=== PATIENT | male | born 1960 | race Caucasian/White ===

== ENCOUNTER 2016-08-07 08:29 | Inpatient (IN) | payer OTHER ==
[2016-08-07 09:39] VITALS: BMI 24.4
--- NOTE | 2016-08-07 11:38 | HP ---
CIWA Score - CIWA Score Nausea/Vomitin-Mild Nausea/No Vomiting Muscle Tremors: 4-Moderate,w/Arms Extend Anxiety: 4-Mod. Anxious/Guarded Agitation: 4-Moderately Restless Paroxysmal Sweats: 3 Orientation: 0-Oriented Tacttile Disturbances: 0-None Auditory Disturbances: 0-None Visual Disturbances: 0-None Headache: 1-Very Mild CIWA-Ar Total Score: 17 Admission ROS BHS - HPI Chief Complaint: I am here to detox. Allergies/Adverse Reactions: Allergies Allergy/AdvReac Type Severity Reaction Status Date / Time Penicillins Allergy Severe Rash Verified 08/07/16 10:14 diphenhydramine HCl Allergy Intermediate SHAKES Verified 08/07/16 10:14 [From Benadryl] History of Present Illness: pt is a 56yr old male with a history of alcohol dependence seeking detox for treatment. pt was at [facility] for alcohol withdrawal in the ED received one dose of libium for his s/s and is here now for detox treatment. Exam Limitations: No Limitations - Ebola screening Have you traveled outside of the country in the last 21 days: No Have you had contact with anyone from an Ebola affected area: No Have you been sick,other than usual withdrawal symptoms: No - Review of Systems Constitutional: Chills, Diaphoresis, Night Sweats, Changes in sleep EENT: reports: No Symptoms Reported Respiratory: reports: No Symptoms reported Cardiac: reports: No Symptoms Reported GI: reports: Nausea, Poor Appetite, Poor Fluid Intake, Indigestion : reports: No Symptoms Reported Musculoskeletal: reports: No Symptoms Reported Integumentary: reports: No Symptoms Reported, Other (bump with scrap to back of head. due to fall two weeks ago.) Neuro: reports: Headache, Tingling, Tremors Endocrine: reports: Excessive Sweating, Flushing, Intolerance to Cold, Intolerance to Heat Hematology: reports: No Symptoms Reported Psychiatric: reports: Judgement Intact, Mood/Affect Appropiate, Orientated x3, Agitated, Anxious Other Systems: Reviewed and Negative Patient History - Patient Medical History Hx Anemia: No Hx Asthma: No Hx Chronic Obstructive Pulmonary Disease (COPD): No Hx Cancer: No Hx Cardiac Disorders: No Hx Congestive Heart Failure: No Hx Hypertension: No Hx Hypercholesterolemia: No Hx Pacemaker: No HX Cerebrovascular Accident: No Hx Seizures: Yes (etoh related last in 2014) Hx Dementia: No Hx Diabetes: No Hx Gastrointestinal Disorders: Yes (Hiatal hernia with GERD.) Hx Liver Disease: No Hx Genitourinary Disorders: No Hx Sexually Transmitted Disorders: No Hx Renal Disease (ESRD): No Hx Thyroid Disease: No Hx Human Immunodeficiency Virus (HIV): No Hx Hepatitis C: No Hx Depression: Yes Hx Suicide Attempt: Yes (Tried to cut rist in 2002/ denies any S/H ideation today.) Hx Bipolar Disorder: No Hx Schizophrenia: No - Patient Surgical History Past Surgical History: No Hx Neurologic Surgery: No Hx Cataract Extraction: No Hx Cardiac Surgery: No Hx Lung Surgery: No Hx Breast Surgery: No Hx Breast Biopsy: No Hx Abdominal Surgery: No Hx Appendectomy: No Hx Cholecystectomy: No Hx Genitourinary Surgery: No Hx Section: No Hx Orthopedic Surgery: No Hx Hysterectomy: No - PPD History Previous Implant?: Yes Documented Results: Positive w/proof Results: CXR neg 07/06 PPD to be Administered?: No - Reproductive History Patient is a Female of Child Bearing Age (11 -55 yrs old): No - Smoking Cessation Smoking history: Current every day smoker Have you smoked in the past 12 months: Yes Aproximately how many cigarettes per day: 8 Hx Chewing Tobacco Use: No Initiated information on smoking cessation: Yes 'Breaking Loose' booklet given: 08/07/16 - Substance & Tx. History Hx Alcohol Use: Yes Hx Substance Use: No Substance Use Type: Alcohol Hx Substance Use Treatment: Yes - Substances Abused Alcohol Route: Oral Frequency: Daily Amount used: fifth of vodka Age of first use: 27 Date of Last Use: 08/06/16 Family Disease History - Family Disease History Family Disease History: Diabetes: Father (ETOH; ), Heart Disease: Father, Other: Father, Mother (ESRD; ) Admission Physical Exam BHS - Vital Signs Vital Signs: Vital Signs - 24 hr 08/07/16 09:38 Temperature 97.7 F Pulse Rate 87 Respiratory 16 Rate Blood Pressure 162/91 - Physical General Appearance: Yes: Disheveled, Moderate Distress, Thin, Tremorous, Irritable, Sweating, Anxious HEENTM: Yes: Normal Voice Respiratory: Yes: Lungs Clear, Normal Breath Sounds, No Respiratory Distress Neck: Yes: No masses,lesions,Nodules Breast: Yes: Within Normal Limits, Axillae without masses, No Discharge, No masses Cardiology: Yes: Regular Rhythm, Regular Rate, S1, S2 Abdominal: Yes: Normal Bowel Sounds, Non Tender, Soft Genitourinary: Yes: Within Normal Limits Back: Yes: Normal Inspection Musculoskeletal: Yes: full range of Motion Extremities: Yes: Normal Inspection, Non-Tender, Tremors Neurological: Yes: Fully Oriented, Alert, Normal Response Integumentary: Yes: Normal Color Lymphatic: Yes: Within Normal Limits - Addiitonal Findings: bump with scrap to back of head d/t fall two weeks ago. - Diagnostic (1) Alcohol dependence with uncomplicated withdrawal Current Visit: Yes Status: Chronic (2) Hiatal hernia with GERD Current Visit: No Status: Chronic (3) PPD positive, treated Current Visit: No Status: Chronic (4) Head lump Current Visit: Yes Status: Acute Comment: back of head with scrap noted. Cleared for Admission [facility] - Detox or Rehab [facility] Level of Care: Medically Managed Detox Regimen/Protocol: Librium [facility] Breath Alcohol Content Breath Alcohol Content: 0 Urine Drug Screen - Results Drug Screen Negative: No Urine Drug Screen Results: BZO-Benzodiazepines
[2016-08-07] MEDS ORDERED: ACETAMINOPHEN 325 MG TABLET (FP) PO PRN (11:46)
[2016-08-07] MEDS ORDERED: LOPERAMIDE HCL 2 MG CAPSULE PO PRN (11:46)
[2016-08-07] MEDS ORDERED: IBUPROFEN 400 MG TABLET (FP) PO PRN (11:46)
[2016-08-07] MEDS ORDERED: MAGNESIUM CITRATE 300 ML BOTTLE PO PRN (11:46)
[2016-08-07] MEDS ORDERED: chlordiazePOXIDE HCL 25 MG CAPSULE PO PRN (11:46)
[2016-08-07] MEDS ORDERED: guaiFENesin/D-METHORPHAN HB 10 ML UNIT-DOSE CUPS PO PRN (11:46)
[2016-08-07] MEDS ORDERED: MENTHOL/PHENOL 1 EACH UD MM PRN (11:46)
[2016-08-07] MEDS ORDERED: MAGNESIUM HYDROX 2400MG/30ML ORAL SUSPENSION 30 ML CUP PO PRN (11:46)
[2016-08-07] MEDS ORDERED: chlordiazePOXIDE HCL 25 MG CAPSULE PO ONE (12:05)
[2016-08-07] MEDS: chlordiazePOXIDE HCL 25 MG CAPSULE PO SCH ×3 (12:15→22:32)
--- NOTE | 2016-08-07 15:05 | CONSULT ---
[facility] Psychiatric Consult - Data Date of interview: 08/07/16 Admission source: [facility] Identifying data: This is 56 years old male with psychiatric hospitalization history, history of depression ontoxcuated with: Alcohol, Benzodiazepins and Nicotine Substance Abuse History: - Smoking Cessation. Smoking history: Current every day smoker. Have you smoked in the past 12 months: Yes. Aproximately how many cigarettes per day: 8. Hx Chewing Tobacco Use: No. Initiated information on smoking cessation: Yes. 'Breaking Loose' booklet given: 08/07/16. - Substance & Tx. History. Hx Alcohol Use: Yes. Hx Substance Use: No. Substance Use Type : Alcohol. Hx Substance Use Treatment: Yes Medical History: GERD, PPD+history, Head lump Psychiatric History: Patient reports history of depression with most recent admission at [facility] due to depressed mood, denies suicidal history, reports taking prior to admission: Lexapro 10mg po qd Physical/Sexual Abuse/Trauma History: Denies Additional Comment: Lexapro 10mg po qd Mental Status Exam - Mental Status Exam Alert and Oriented to: Person Cognitive Function: Fair Patient Appearance: Unkempt Mood: Sad Affect: Flat Patient Behavior: Sedated Speech Pattern: Appropriate Voice Loudness: Mildly Soft/Quiet Thought Process: Goal Oriented Thought Disorder: Being Controlled Hallucinations: Denies Suicidal Ideation: Denies Homicidal Ideation: Denies Insight/Judgement: Fair Sleep: Difficulty falling asleep Appetite: Fair Muscle strength/Tone: Mild Hypotonicity Gait/Station: Shuffling Additional Comments: Lexapro 10mg po qd Psychiatric Findings - Problem List ([place] 1, 2,3) (1) Alcohol dependence with uncomplicated withdrawal Current Visit: Yes Status: Chronic (2) Nicotine dependence Current Visit: Yes Status: Acute (3) Benzodiazepine abuse Current Visit: Yes Status: Acute (4) Drug-induced mood disorder Current Visit: Yes Status: Acute - Initial Treatment Plan Initial Treatment Plan: Lexapro 10mg po qd
[2016-08-07] MEDS ORDERED: QUEtiapine FUMARATE 100 MG TABLET (FP) PO STA (15:14)
--- NOTE | 2016-08-07 16:11 | EKG ---
Test Reason : Blood Pressure : / mmHG Vent. Rate : 083 BPM Atrial Rate : 083 BPM P-R Int : 132 ms QRS Dur : 086 ms QT Int : 398 ms P-R-T Axes : 076 079 073 degrees QTc Int : 467 ms NORMAL SINUS RHYTHM MINIMAL VOLTAGE CRITERIA FOR LVH, MAY BE NORMAL VARIANT BORDERLINE ECG WHEN COMPARED WITH ECG OF 13-JUL-2016 16:15, NO SIGNIFICANT CHANGE WAS FOUND Confirmed by MILENA LAWS, NAVI ([id number]) on 08/07/2016 4:11:09 PM Referred By: Vikash Johnson Confirmed By:NAVI ABBOTT MD
[2016-08-07 20:51] LABS: URINE APPEARANCE CLEAR; URINE BILIRUBIN NEGATIVE (NEGATIVE); URINE BLOOD NEGATIVE (NEGATIVE); URINE COLOR YELLOW; URINE GLUCOSE (UA) NEGATIVE (NEGATIVE); URINE KETONE NEGATIVE (NEGATIVE); URINE LEUK ESTERASE NEGATIVE (NEGATIVE); URINE NITRITE NEGATIVE (NEGATIVE); URINE PROTEIN NEGATIVE (NEGATIVE); URINE UROBILINOGEN NEGATIVE E.U./dl (0.2-1.0)
[2016-08-07] MEDS ORDERED: QUEtiapine FUMARATE 100 MG TABLET (FP) PO SCH (22:00)
[2016-08-07] MEDS: THIAMINE HCL 100 MG TABLET (FP) PO SCH (22:31)
[2016-08-07] MEDS: BACITRACIN 0.9 GM PACKET TP SCH (22:31)
[2016-08-08] MEDS: chlordiazePOXIDE HCL 25 MG CAPSULE PO SCH ×4 (05:43→22:28)
[2016-08-08] MEDS ORDERED: cloNIDine HCL 0.1 MG TABLET PO ONE (07:31)
[2016-08-08] MEDS: ESCITALOPRAM OXALATE 10 MG TABLET (FP) PO SCH (10:25)
[2016-08-08] MEDS: BACITRACIN 0.9 GM PACKET TP SCH ×2 (10:25→22:28)
[2016-08-08] MEDS: PRENATAL VITAMINS W/ FOLIC ACID TABLET (FP) PO SCH (10:25)
[2016-08-08 10:36] LABS: MCH 29.1 pg (25.7-33.7); MCHC 32.8 g/dl (32.0-35.9); MEAN CELL VOLUME 88.8 fl (80-96); MEAN PLT VOLUME 7.9 fl (7.5-11.1); PLATELET COUNT 412 K/MM3 (134-434); RDW 19.5 % (11.9-15.9); WHITE BLOOD COUNT 7.8 K/mm3 (4.0-10.0)
[2016-08-08 10:48] LABS: ALBUMIN 3.9 g/dl (3.4-5.0); ALK PHOS 166 U/L (45-117); ANION GAP 12 (8-16); BILIRUBIN,TOTAL 0.5 mg/dL (0.2-1.0); CALCIUM 9.5 mg/dL (8.5-10.1); CO2 27 mmol/L (21-32); CREATININE 0.7 mg/dL (0.7-1.3); GLUCOSE,RANDOM 101 mg/dL (74-106); SGOT/AST 47 U/L (15-37); SGPT/ALT 58 U/L (12-78); TOT PROT 7.2 g/dl (6.4-8.2)
[2016-08-08] MEDS: MAG HYDROX/AL HYDROX/SIMETH 30 ML UNIT-DOSE CUP PO PRN (13:26)
--- NOTE | 2016-08-08 15:29 | PN ---
[facility] CIWA - CIWA Score Nausea/Vomitin-No Nausea/No Vomiting Muscle Tremors: 3 Anxiety: 4-Mod. Anxious/Guarded Agitation: 4-Moderately Restless Paroxysmal Sweats: 3 Orientation: 0-Oriented Tacttile Disturbances: 0-None Auditory Disturbances: 0-None Visual Disturbances: 0-None Headache: 0-None Present CIWA-Ar Total Score: 14 BHS Progress Note (SOAP) Subjective: SWEATING,INTERRUPTED SLEEP,ANXIETY,TREMORS,RESTLESS. Objective: 08/08/16 15:28 Vital Signs - 8 hr 08/08/16 08/08/16 08/08/16 07:39 09:51 14:19 Temperature 98.4 F 96.1 F L Pulse Rate 101 H 105 H 102 H Respiratory 18 16 Rate Blood Pressure 177/93 119/74 126/85 Laboratory Last Values WBC 7.8 K/mm3 (4.0-10.0) 08/08/16 05:30 RBC 3.95 M/mm3 (4.00-5.60) L 08/08/16 05:30 Hgb 11.5 GM/dL (11.7-16.9) L 08/08/16 05:30 Hct 35.1 % (35.4-49) L 08/08/16 05:30 MCV 88.8 fl (80-96) 08/08/16 05:30 MCHC 32.8 g/dl (32.0-35.9) 08/08/16 05:30 RDW 19.5 % (11.9-15.9) H 08/08/16 05:30 Plt Count 412 K/MM3 (134-434) 08/08/16 05:30 MPV 7.9 fl (7.5-11.1) 08/08/16 05:30 Sodium 137 mmol/L (136-145) 08/08/16 05:30 Potassium 4.1 mmol/L (3.5-5.1) 08/08/16 05:30 Chloride 98 mmol/L (98-107) 08/08/16 05:30 Carbon Dioxide 27 mmol/L (21-32) 08/08/16 05:30 Anion Gap 12 (8-16) 08/08/16 05:30 BUN 9 mg/dL (7-18) D 08/08/16 05:30 Creatinine 0.7 mg/dL (0.7-1.3) 08/08/16 05:30 Creat Clearance w eGFR > 60 (>60) 08/08/16 05:30 Random Glucose 101 mg/dL (74-106) 08/08/16 05:30 Calcium 9.5 mg/dL (8.5-10.1) 08/08/16 05:30 Total Bilirubin 0.5 mg/dL (0.2-1.0) D 08/08/16 05:30 AST 47 U/L (15-37) H 08/08/16 05:30 ALT 58 U/L (12-78) D 08/08/16 05:30 Alkaline Phosphatase 166 U/L (45-117) H D 08/08/16 05:30 Total Protein 7.2 g/dl (6.4-8.2) 08/08/16 05:30 Albumin 3.9 g/dl (3.4-5.0) 08/08/16 05:30 Urine Color Yellow 08/07/16 15:50 Urine Appearance Clear 08/07/16 15:50 Urine pH 7.0 (5.0-8.0) 08/07/16 15:50 Ur Specific [place] 1.017 (1.001-1.035) 08/07/16 15:50 Urine Protein Negative (NEGATIVE) 08/07/16 15:50 Urine Glucose (UA) Negative (NEGATIVE) 08/07/16 15:50 Urine Ketones Negative (NEGATIVE) 08/07/16 15:50 Urine Blood Negative (NEGATIVE) 08/07/16 15:50 Urine Nitrite Negative (NEGATIVE) 08/07/16 15:50 Urine Bilirubin Negative (NEGATIVE) 08/07/16 15:50 Urine Urobilinogen Negative E.U./dl (0.2-1.0) 08/07/16 15:50 Ur Leukocyte Esterase Negative (NEGATIVE) 08/07/16 15:50 RPR Titer Nonreactive (NONREACTIVE) 08/08/16 05:30 LABS NOTED Assessment: 08/08/16 15:28 WITHDRAWAL SX. Plan: CONTINUE DETOX
[2016-08-08] MEDS: THIAMINE HCL 100 MG TABLET (FP) PO SCH (22:28)
[2016-08-09] MEDS: chlordiazePOXIDE HCL 25 MG CAPSULE PO SCH (05:51)
[2016-08-09] MEDS: ESCITALOPRAM OXALATE 10 MG TABLET (FP) PO SCH (10:04)
[2016-08-09] MEDS: BACITRACIN 0.9 GM PACKET TP SCH ×2 (10:04→22:21)
[2016-08-09] MEDS: PRENATAL VITAMINS W/ FOLIC ACID TABLET (FP) PO SCH (10:04)
[2016-08-09] MEDS: chlordiazePOXIDE 5 MG CAPSULE PO SCH ×3 (10:05→22:21)
[2016-08-09] MEDS: MAG HYDROX/AL HYDROX/SIMETH 30 ML UNIT-DOSE CUP PO PRN (10:07)
--- NOTE | 2016-08-09 20:34 | PN ---
[id number] 3 Anxiety: 4-Mod. Anxious/Guarded Agitation: 3 Paroxysmal Sweats: 3 Orientation: 0-Oriented Tacttile Disturbances: 0-None Auditory Disturbances: 0-None Visual Disturbances: 0-None Headache: 0-None Present CIWA-Ar Total Score: 13 BHS Progress Note (SOAP) Subjective: ANXIETY,TREMORS,INTERRUPTED SLEEP,SWEATING,RESTLESS. Objective: 08/09/16 20:33 Vital Signs - 8 hr 08/09/16 08/09/16 14:19 17:57 Temperature 96.8 F L 98.6 F Pulse Rate 99 H 79 Respiratory 20 19 Rate Blood Pressure 124/80 148/81 Laboratory Last Values WBC 7.8 K/mm3 (4.0-10.0) 08/08/16 05:30 RBC 3.95 M/mm3 (4.00-5.60) L 08/08/16 05:30 Hgb 11.5 GM/dL (11.7-16.9) L 08/08/16 05:30 Hct 35.1 % (35.4-49) L 08/08/16 05:30 MCV 88.8 fl (80-96) 08/08/16 05:30 MCHC 32.8 g/dl (32.0-35.9) 08/08/16 05:30 RDW 19.5 % (11.9-15.9) H 08/08/16 05:30 Plt Count 412 K/MM3 (134-434) 08/08/16 05:30 MPV 7.9 fl (7.5-11.1) 08/08/16 05:30 Sodium 137 mmol/L (136-145) 08/08/16 05:30 Potassium 4.1 mmol/L (3.5-5.1) 08/08/16 05:30 Chloride 98 mmol/L (98-107) 08/08/16 05:30 Carbon Dioxide 27 mmol/L (21-32) 08/08/16 05:30 Anion Gap 12 (8-16) 08/08/16 05:30 BUN 9 mg/dL (7-18) D 08/08/16 05:30 Creatinine 0.7 mg/dL (0.7-1.3) 08/08/16 05:30 Creat Clearance w eGFR > 60 (>60) 08/08/16 05:30 Random Glucose 101 mg/dL (74-106) 08/08/16 05:30 Calcium 9.5 mg/dL (8.5-10.1) 08/08/16 05:30 Total Bilirubin 0.5 mg/dL (0.2-1.0) D 08/08/16 05:30 AST 47 U/L (15-37) H 08/08/16 05:30 ALT 58 U/L (12-78) D 08/08/16 05:30 Alkaline Phosphatase 166 U/L (45-117) H D 08/08/16 05:30 Total Protein 7.2 g/dl (6.4-8.2) 08/08/16 05:30 Albumin 3.9 g/dl (3.4-5.0) 08/08/16 05:30 Urine Color Yellow 08/07/16 15:50 Urine Appearance Clear 08/07/16 15:50 Urine pH 7.0 (5.0-8.0) 08/07/16 15:50 Ur Specific [place] 1.017 (1.001-1.035) 08/07/16 15:50 Urine Protein Negative (NEGATIVE) 08/07/16 15:50 Urine Glucose (UA) Negative (NEGATIVE) 08/07/16 15:50 Urine Ketones Negative (NEGATIVE) 08/07/16 15:50 Urine Blood Negative (NEGATIVE) 08/07/16 15:50 Urine Nitrite Negative (NEGATIVE) 08/07/16 15:50 Urine Bilirubin Negative (NEGATIVE) 08/07/16 15:50 Urine Urobilinogen Negative E.U./dl (0.2-1.0) 08/07/16 15:50 Ur Leukocyte Esterase Negative (NEGATIVE) 08/07/16 15:50 RPR Titer Nonreactive (NONREACTIVE) 08/08/16 05:30 Assessment: 08/09/16 20:34 WITHDRAWAL SX. Plan: CONTINUE DETOX
[2016-08-09] MEDS: THIAMINE HCL 100 MG TABLET (FP) PO SCH (22:21)
[2016-08-10] MEDS: chlordiazePOXIDE 5 MG CAPSULE PO SCH (05:31)
[2016-08-10] MEDS: ESCITALOPRAM OXALATE 10 MG TABLET (FP) PO SCH (10:22)
[2016-08-10] MEDS: BACITRACIN 0.9 GM PACKET TP SCH ×2 (10:22→22:23)
[2016-08-10] MEDS: PRENATAL VITAMINS W/ FOLIC ACID TABLET (FP) PO SCH (10:22)
[2016-08-10] MEDS: chlordiazePOXIDE HCL 10 MG CAPSULE PO SCH ×3 (10:22→22:23)
--- NOTE | 2016-08-10 16:06 | PN ---
BHS Progress Note (SOAP) Subjective: nausea, sweats, interrupted sleep, anxeity, tremors Objective: 08/10/16 16:05 Vital Signs - 24 hr 08/09/16 08/09/16 08/10/16 17:57 21:49 00:28 Temperature 98.6 F 97.9 F Pulse Rate 79 94 H Respiratory 19 18 18 Rate Blood Pressure 148/81 125/90 08/10/16 08/10/16 08/10/16 03:27 06:04 09:35 Temperature 97.6 F 97.9 F Pulse Rate 83 101 H Respiratory 18 18 20 Rate Blood Pressure 142/92 131/83 08/10/16 13:33 Temperature 97.1 F L Pulse Rate 91 H Respiratory 20 Rate Blood Pressure 152/89 Laboratory Tests 08/07/16 08/08/16 08/08/16 15:50 05:30 05:30 WBC 7.8 RBC 3.95 L Hgb 11.5 L Hct 35.1 L MCV 88.8 MCHC 32.8 RDW 19.5 H Plt Count 412 MPV 7.9 Sodium 137 Potassium 4.1 Chloride 98 Carbon Dioxide 27 Anion Gap 12 BUN 9 D Creatinine 0.7 Creat Clearance w eGFR > 60 Random Glucose 101 Calcium 9.5 Total Bilirubin 0.5 D AST 47 H ALT 58 D Alkaline Phosphatase 166 H D Total Protein 7.2 Albumin 3.9 Urine Color Yellow Urine Appearance Clear Urine pH 7.0 Ur Specific [place] 1.017 Urine Protein Negative Urine Glucose (UA) Negative Urine Ketones Negative Urine Blood Negative Urine Nitrite Negative Urine Bilirubin Negative Urine Urobilinogen Negative Ur Leukocyte Esterase Negative RPR Titer 08/08/16 05:30 WBC RBC Hgb Hct MCV MCHC RDW Plt Count MPV Sodium Potassium Chloride Carbon Dioxide Anion Gap BUN Creatinine Creat Clearance w eGFR Random Glucose Calcium Total Bilirubin AST ALT Alkaline Phosphatase Total Protein Albumin Urine Color Urine Appearance Urine pH Ur Specific [place] Urine Protein Urine Glucose (UA) Urine Ketones Urine Blood Urine Nitrite Urine Bilirubin Urine Urobilinogen Ur Leukocyte Esterase RPR Titer Nonreactive Assessment: 08/10/16 16:05 tchycarda, elevated bp, elevated LFTs, withdrawal sx Plan: cont detox. encoruage fluids
[2016-08-10] MEDS: THIAMINE HCL 100 MG TABLET (FP) PO SCH (22:23)
[2016-08-11] MEDS: chlordiazePOXIDE HCL 10 MG CAPSULE PO SCH (05:42)
[2016-08-11 06:22] VITALS: BP 124/87; PULSE 83; TEMP 98.9
--- NOTE | 2016-08-11 12:43 | DS ---
[facility] Detox Discharge Summary Admission Date: 08/07/16 Discharge Date: 08/11/16 - History Present History: Alcohol Dependence Pertinent Past History: GERD - Physical Exam Results Vital Signs: Vital Signs Temperature 98.9 F 08/11/16 06:22 Pulse Rate 83 08/11/16 06:22 Respiratory Rate 18 08/11/16 06:22 Blood Pressure 124/87 08/11/16 06:22 O2 Sat by Pulse Oximetry (%) Pertinent Admission Physical Exam Findings: WITHDRAWAL SX - Treatment Hospital Course: Detox Protocol Followed, Detoxed Safely, Responded well, Discharged Condition Good - Medication Discharge Medications: Ambulatory Orders Quetiapine Fumarate [Seroquel] 100 mg PO TID #90 tablet 08/07/16 - Diagnosis (1) Drug-induced mood disorder Status: Acute (2) Nicotine dependence Status: Acute Qualifiers: Nicotine product type: cigarettes (3) Alcohol dependence with uncomplicated withdrawal Status: Acute (4) Hiatal hernia with GERD Status: Chronic - AMA Did Patient Leave Against Medical Advice: No
== END 2016-08-11 09:40 | disposition home or self-care (01) | DRG 775 ==
LOC: YASAS 08:29 → Y3N 11:00
PROVIDERS: ADMIT Internal Medicine; ATTEND Internal Medicine
PROC: HZ2ZZZZ Detoxification Services for Substance Abuse Treatment (ICD-10-PCS; principal; 2016-08-07)
DX: F10.230 Alcohol dependence with withdrawal, uncomplicated (principal); F13.10 Sedative, hypnotic or anxiolytic abuse, uncomplicated; F17.210 Nicotine dependence, cigarettes, uncomplicated; F19.24 Other psychoactive substance dependence with psychoactive substance-induced mood disorder; R03.0 Elevated blood-pressure reading, without diagnosis of hypertension; K21.9 Gastro-esophageal reflux disease without esophagitis; K44.9 Diaphragmatic hernia without obstruction or gangrene; R94.5 Abnormal results of liver function studies; R00.0 Tachycardia, unspecified; R22.0 Localized swelling, mass and lump, head; R76.11 Nonspecific reaction to tuberculin skin test without active tuberculosis; Z86.69 Personal history of other diseases of the nervous system and sense organs; Z91.5 Personal history of self-harm; Z59.0 Homelessness
CPT/HCPCS: 36415; 80053; 81003; 85027; 86593; 93005; 93010